=== PATIENT | male | born 1980 ===

== ENCOUNTER 2024-10-30 06:26 | Day surgery (SDC) | payer OTHER, SELFPAY | END 2024-10-30 12:38 | disposition home or self-care (01) | LOC: GI 06:26 | PROVIDERS: ATTENDING PHYSICIAN Internal Medicine Gastroenterology | DX: D12.4 Benign neoplasm of descending colon (principal); K63.5 Polyp of colon; K57.30 Diverticulosis of large intestine without perforation or abscess without bleeding; K64.8 Other hemorrhoids; R19.4 Change in bowel habit; K22.2 Esophageal obstruction; K20.90 Esophagitis, unspecified without bleeding; K44.9 Diaphragmatic hernia without obstruction or gangrene; K31.7 Polyp of stomach and duodenum | CPT/HCPCS: 45385; 43239; 88305 ==